=== PATIENT | female | born 1960 ===

== ENCOUNTER 2018-04-02 14:43 | Inpatient (IN) | payer BC ==
[~2018-04-02] VITALS: Ht 167.6 cm; Wt 82.9 kg
[2018-04-02] MEDS ORDERED: ALBU2.5V5 NEB (14:50)
[2018-04-02] MEDS ORDERED: ALBU90OI61 INH (14:50)
[2018-04-02] MEDS ORDERED: ALBU3IS (14:51)
[2018-04-02] MEDS ORDERED: Prinivil10 MG PO (14:51)
[2018-04-02] MEDS ORDERED: BUDE6HFA INH (14:51)
[2018-04-02 15:40] LABS: BASOPHILS PERCENT AUTO 1 % (0-2); EOSINOPHILS PERCENT AUTO 13 % (0-6); Hemoglobin 15.6 g/dL (11.5-16.0); IMMATURE GRAN ABSOLUTE AUTO 0.02 K/mm3 (0.00-0.10); IMMATURE GRAN PERCENT AUTO 0 % (0-1); LYMPHOCYTES ABSOLUTE AUTO 2.59 K/mm3 (0.84-5.20); LYMPHOCYTES PERCENT AUTO 29 % (21-46); MONOCYTES ABSOLUTE AUTO 0.67 K/mm3 (0.16-1.47); MONOCYTES PERCENT AUTO 8 % (4-13); Mean Corpuscular HGB 31.5 pg (26.0-34.0); Mean Corpuscular HGB Conc 34.7 g/dL (31.5-36.5); Mean Corpuscular Volume 91 fL (80-100); Mean Platelet Volume 9.9 fL (9.1-12.4); NEUTROPHILS ABSOLUTE AUTO 4.37 K/mm3 (1.96-9.15); NEUTROPHILS PERCENT AUTO 49 % (41-73); Platelet Count 231 K/mm3 (150-400); RDW Coefficient Variation 12.1 % (11.7-14.2); RDW Standard Deviation 39.9 fL (35.1-46.3); Red Blood Cell Count 4.96 M/mm3 (3.80-5.20); White Blood Cell Count 8.95 K/mm3 (4.00-11.30)
[2018-04-02 16:06] LABS: Alanine Aminotransfer (ALT/SGP 21 U/L (12-78); Albumin, Blood 3.8 g/dL (3.4-5.0); Albumin/Globulin Ratio 1.1 (0.8-1.8); Alk Phos 61 U/L (50-136); Anion Gap 9 mmol/L (6-16); Aspartate Aminotrans (AST/SGOT 12 U/L (12-37); Bilirubin, Total 0.6 mg/dL (0.1-1.0); Blood Urea Nitrogen 13 mg/dL (8-24); Bun/Creatinine Ratio 14.5 (12.0-20.0); CO2, Blood 26 mmol/L (21-32); Calcium, Blood 9.3 mg/dL (8.5-10.1); Chloride, Blood 107 mmol/L (98-108); Globulin, Blood 3.4 g/dL (2.2-4.0); Glomerular Filtration Rate >60 (60-); Glucose, Blood 107 mg/dL (70-99); Potassium, Blood 3.3 mmol/L (3.5-5.5); Sodium, Blood 142 mmol/L (136-145); Total Protein, Blood 7.2 g/dL (6.4-8.2); Troponin I <0.015 ng/mL (0.000-0.040)
[2018-04-02] MEDS ORDERED: Hydrochloroth12.5 MG PO (19:12)
[2018-04-02] MEDS ORDERED: ALL DAY ALLERGY10 M1 PO (19:13)
[2018-04-02] MEDS ORDERED: Flonase 0.05% N16 GM (19:14)
[2018-04-03 04:19] LABS: Anion Gap 10 mmol/L (6-16); Blood Urea Nitrogen 15 mg/dL (8-24); Bun/Creatinine Ratio 18.4 (12.0-20.0); CO2, Blood 24 mmol/L (21-32); Calcium, Blood 9.4 mg/dL (8.5-10.1); Chloride, Blood 107 mmol/L (98-108); Creatinine, Blood 0.82 mg/dL (0.40-1.00); Glomerular Filtration Rate >60 (60-); Glucose, Blood 153 mg/dL (70-99); Potassium, Blood 3.6 mmol/L (3.5-5.5); Sodium, Blood 141 mmol/L (136-145)
--- NOTE | 2018-04-03 06:48 | NUR ---
PCU NOC SHIFT SUMMARY PATIENT ARRIVED TO UNIT FROM ER AND AMULATED FROM WHEELCHAIR TO UNIT BED. PATIENT HAD INCREASE WOB WITH EXCERTION. OXYGEN APPLIED AT 2 LPM AND LATER TITRATED UP TO 4 LPM NC. L/S COARSE T/O. PATIENT DENIES ANY PAIN T/O SHIFT. PATIENT ORIENTED TO UNIT AND ROOM AND CURRENT MEDICATIONS. BREATHING TREATMENTS GIVEN PRN. NO ACUTE DISTRESS NOTED T/O SHIFT AND VSS. WILL CONTINUE TO MONITOR AND GIVE REPORT TO DAYSHIFT RN.
[2018-04-03 10:34] LABS: Adenovirus Not Detected (NOT DETECT); Bordetella pertussis Not Detected (NOT DETECT); Chlamydophila pneumoniae Not Detected (NOT DETECT); Coronavirus 229E Not Detected (NOT DETECT); Coronavirus HKU1 Not Detected (NOT DETECT); Coronavirus NL63 Not Detected (NOT DETECT); Coronavirus OC43 Not Detected (NOT DETECT); Human Metapneumovirus Not Detected (NOT DETECT); Human Rhinovirus/Enterovirus Not Detected (NOT DETECT); Influenza A Not Detected (NOT DETECT); Influenza A/2009-H1 Not Detected (NOT DETECT); Influenza A/H1 Not Detected (NOT DETECT); Influenza A/H3 Not Detected (NOT DETECT); Influenza B Not Detected (NOT DETECT); Mycoplasma pneumoniae Not Detected (NOT DETECT); Parainfluenza Virus 1 Not Detected (NOT DETECT); Parainfluenza Virus 2 Not Detected (NOT DETECT); Parainfluenza Virus 3 Not Detected (NOT DETECT); Parainfluenza Virus 4 Not Detected (NOT DETECT); Respiratory Syncytial Virus Not Detected (NOT DETECT)
--- NOTE | 2018-04-03 12:17 | NUR ---
Assumed Care: Assumed care of pt at approx 0700. VSS. In no apparent sign of distress. P is A&Ox4. C/o some mild back pain - offered tylenol and heating pad - pt states that she will call if she needs any additional interventions other than repositioning. Pt states that she would like to get up for a walk today. Pt requesting probiotic for recent diarrhea. Currently resting in bed, using flutter valve. Denies any further questions, complaints or requests at this time. Will continue to tutu.
--- NOTE | 2018-04-03 19:50 | NUR ---
Shift Summary No acute changes since initial shift assessment. VSS. In no apparent sign of distress. Pt is A&Ox4. Calls appropriately. C/o mild headache today - medicated per orders. Pt ambulated in jimenez today and SpO2 was higher than any other point today when pt returned to bed after walk at 96%. Otherwise pt has been apporx 88-90% Spo2 on 4L O2 NC. Pt denies any other acute events or complaints t/o the shift. Currently resting in bed with call light within reach. Denies any further questions, complaints or requests at this time. Report given to baljeet Chavez.
--- NOTE | 2018-04-04 01:37 | NUR ---
REPORT FROM RAYMOND IN PCU. PT TRANSFERRED FROM PCU IN STABLE CONDITION, A&O, ABLE TO MAKE NEEDS KNOWN. ORIENTED TO UNIT. RT TO BRING CONT BIOX.
--- NOTE | 2018-04-04 02:30 | NUR ---
TRANSFER SUMMARY PATIENT ALERT AND ORIENTED X4 T/O SHIFT. RESP E/U AT REST. PATIENT REMAINED ON 3.5 LPM NC T/O SHIFT WITH CONTINUOUS BIOX IN PLACE; L/S REMAINS COARSE T/O. NO ACUTE CHANGES, VSS, PATIENT SLEPT WELL T/O SHIFT. REPORT GIVEN TO MACHINE REPAIR PERSON. PATIENT LEFT UNIT IN NO ACUTE DISTRESS.
[2018-04-04 05:32] LABS: BASOPHILS ABSOLUTE AUTO 0.02 K/mm3 (0.00-0.23); BASOPHILS PERCENT AUTO 0 % (0-2); EOSINOPHILS PERCENT AUTO 0 % (0-6); Hematocrit 38.3 % (33.0-51.0); Hemoglobin 13.4 g/dL (11.5-16.0); IMMATURE GRAN ABSOLUTE AUTO 0.08 K/mm3 (0.00-0.10); IMMATURE GRAN PERCENT AUTO 1 % (0-1); LYMPHOCYTES ABSOLUTE AUTO 0.99 K/mm3 (0.84-5.20); LYMPHOCYTES PERCENT AUTO 6 % (21-46); MONOCYTES ABSOLUTE AUTO 0.23 K/mm3 (0.16-1.47); MONOCYTES PERCENT AUTO 1 % (4-13); Mean Corpuscular HGB 32.1 pg (26.0-34.0); Mean Corpuscular Volume 92 fL (80-100); Mean Platelet Volume 10.2 fL (9.1-12.4); NEUTROPHILS ABSOLUTE AUTO 15.86 K/mm3 (1.96-9.15); NEUTROPHILS PERCENT AUTO 92 % (41-73); Platelet Count 216 K/mm3 (150-400); RDW Coefficient Variation 11.9 % (11.7-14.2); RDW Standard Deviation 40.1 fL (35.1-46.3); Red Blood Cell Count 4.18 M/mm3 (3.80-5.20); White Blood Cell Count 17.18 K/mm3 (4.00-11.30)
[2018-04-04 06:04] LABS: Alanine Aminotransfer (ALT/SGP 18 U/L (12-78); Albumin, Blood 3.5 g/dL (3.4-5.0); Albumin/Globulin Ratio 1.2 (0.8-1.8); Alk Phos 47 U/L (50-136); Anion Gap 9 mmol/L (6-16); Aspartate Aminotrans (AST/SGOT 9 U/L (12-37); Bilirubin, Total 0.4 mg/dL (0.1-1.0); Blood Urea Nitrogen 28 mg/dL (8-24); CO2, Blood 24 mmol/L (21-32); Calcium, Blood 9.3 mg/dL (8.5-10.1); Chloride, Blood 108 mmol/L (98-108); Creatinine, Blood 0.97 mg/dL (0.40-1.00); Globulin, Blood 2.9 g/dL (2.2-4.0); Glomerular Filtration Rate >60 (60-); Glucose, Blood 146 mg/dL (70-99); Potassium, Blood 3.9 mmol/L (3.5-5.5); Sodium, Blood 141 mmol/L (136-145); Total Protein, Blood 6.4 g/dL (6.4-8.2)
--- NOTE | 2018-04-04 06:32 | NUR ---
SHIFT SUMMARY PT TRANSFERRED FROM PCU 15 LAST NIGHT, MED STATUS NO TELE, STABLE. PT REPORTS HER SOB AND WHEEZING HAS IMPROVED. SHE IS A&O, ABLE TO MAKE NEEDS KNOWN. LUNGS WERE COARSE WITH EXPIRATORY WHEEZING ON THE LEFT. SHE IS MAINTAINING IN THE LOW 90S ON 3.5L VIA NC, COULD POTENTIALLY BE WEANED DOWN TODAY. RT ON THE CASE. WILL CTM UNTIL PASS TO NEXT SHIFT.
--- NOTE | 2018-04-04 18:03 | NUR ---
SHIFT SUMMARY PT DENIES SOB AT REST AND WITH EXERTION. IV ANTIBIOTICS STARTED THIS AFTERNOON. PT IS INDEPEDENT WHEN OOB. O2 DECREASED FROM 3L TO 2L. VSS. WILL MONITOR UNTIL REPORT TO ONCOMING RN.
--- NOTE | 2018-04-04 19:15 | NUR ---
recvd bedside report from previous shift rn munira, pt sitting up in bed, a/0 x 4, pleasant/cooperative, 2l nc, bed in lowest position, bed rails up, call light within reach.
--- NOTE | 2018-04-05 04:46 | NUR ---
SHIFT SUMMARY: VSS, NO ACUTE CHANGE, PT REMAINED A/0 X 4, PLEASANT/COOPERATIVE. PT REQUESTED ANALGESIA PER MAR FOR REPORTED HEADACHE. ON ASSESSMENT PT REPORTS IMPROVEMENT OF HEADACHE. PT TOLERATED PO INTAKE WELL WITH NO N/V, URINE OUTPUT >600 ML. NO BM, PROVIDED BOWEL CARE. LUNGS: CLEAR IN L LOBES, EXPIRATORY WHEEZE IN R MIDDLE AND LOWER LOBES. PT REPORTS NO SOB. PT APPEARS TO BE SLEEPING PERIODICALLY T/O SHIFT.
[2018-04-05 04:50] LABS: BASOPHILS ABSOLUTE AUTO 0.01 K/mm3 (0.00-0.23); BASOPHILS PERCENT AUTO 0 % (0-2); EOSINOPHILS PERCENT AUTO 0 % (0-6); Hematocrit 38.2 % (33.0-51.0); Hemoglobin 13.3 g/dL (11.5-16.0); IMMATURE GRAN ABSOLUTE AUTO 0.06 K/mm3 (0.00-0.10); IMMATURE GRAN PERCENT AUTO 0 % (0-1); LYMPHOCYTES ABSOLUTE AUTO 0.73 K/mm3 (0.84-5.20); LYMPHOCYTES PERCENT AUTO 5 % (21-46); MONOCYTES ABSOLUTE AUTO 0.17 K/mm3 (0.16-1.47); MONOCYTES PERCENT AUTO 1 % (4-13); Mean Corpuscular HGB 32.3 pg (26.0-34.0); Mean Corpuscular HGB Conc 34.8 g/dL (31.5-36.5); Mean Corpuscular Volume 93 fL (80-100); Mean Platelet Volume 10.1 fL (9.1-12.4); NEUTROPHILS ABSOLUTE AUTO 13.09 K/mm3 (1.96-9.15); NEUTROPHILS PERCENT AUTO 93 % (41-73); Platelet Count 214 K/mm3 (150-400); RDW Coefficient Variation 11.9 % (11.7-14.2); RDW Standard Deviation 40.3 fL (35.1-46.3); Red Blood Cell Count 4.12 M/mm3 (3.80-5.20); White Blood Cell Count 14.06 K/mm3 (4.00-11.30)
[2018-04-05 05:13] LABS: Alanine Aminotransfer (ALT/SGP 18 U/L (12-78); Albumin, Blood 3.4 g/dL (3.4-5.0); Albumin/Globulin Ratio 1.2 (0.8-1.8); Alk Phos 45 U/L (50-136); Anion Gap 8 mmol/L (6-16); Aspartate Aminotrans (AST/SGOT 10 U/L (12-37); Bilirubin, Total 0.5 mg/dL (0.1-1.0); Blood Urea Nitrogen 26 mg/dL (8-24); Bun/Creatinine Ratio 28.6 (12.0-20.0); CO2, Blood 27 mmol/L (21-32); Calcium, Blood 9.3 mg/dL (8.5-10.1); Chloride, Blood 107 mmol/L (98-108); Creatinine, Blood 0.91 mg/dL (0.40-1.00); Globulin, Blood 2.9 g/dL (2.2-4.0); Glomerular Filtration Rate >60 (60-); Glucose, Blood 145 mg/dL (70-99); Sodium, Blood 142 mmol/L (136-145); Total Protein, Blood 6.3 g/dL (6.4-8.2)
--- NOTE | 2018-04-05 17:41 | NUR ---
SHIFT SUMMARY O2 HAS BEEN TITRATED TO 1L. PT DENIES SOB AT REST AND WITH EXERTION. PT REMAINS INDEPEDENT IN THE ROOM. VSS. WILL MONITOR UNTIL REPORT TO ONCOMING RN.
[2018-04-06 04:51] LABS: BASOPHILS ABSOLUTE AUTO 0.01 K/mm3 (0.00-0.23); BASOPHILS PERCENT AUTO 0 % (0-2); EOSINOPHILS ABSOLUTE AUTO 0.01 K/mm3 (0.00-0.68); EOSINOPHILS PERCENT AUTO 0 % (0-6); Hemoglobin 13.3 g/dL (11.5-16.0); IMMATURE GRAN ABSOLUTE AUTO 0.05 K/mm3 (0.00-0.10); IMMATURE GRAN PERCENT AUTO 1 % (0-1); LYMPHOCYTES ABSOLUTE AUTO 0.84 K/mm3 (0.84-5.20); LYMPHOCYTES PERCENT AUTO 9 % (21-46); MONOCYTES ABSOLUTE AUTO 0.32 K/mm3 (0.16-1.47); MONOCYTES PERCENT AUTO 3 % (4-13); Mean Corpuscular HGB 31.3 pg (26.0-34.0); Mean Corpuscular HGB Conc 34.1 g/dL (31.5-36.5); Mean Corpuscular Volume 92 fL (80-100); Mean Platelet Volume 10.2 fL (9.1-12.4); NEUTROPHILS PERCENT AUTO 88 % (41-73); Platelet Count 211 K/mm3 (150-400); RDW Coefficient Variation 11.9 % (11.7-14.2); RDW Standard Deviation 39.7 fL (35.1-46.3); Red Blood Cell Count 4.25 M/mm3 (3.80-5.20); White Blood Cell Count 9.93 K/mm3 (4.00-11.30)
--- NOTE | 2018-04-06 05:00 | NUR ---
PT REQUESTED HELP WITH STRAIGHT CATHING. 14FR STRAIGHT CATH PLACED USING STERILE TECHNIQUE. 600ML CLEAR CONCENTRATED YELLOW URINE DRAINED FROM BLADDER. [facility] PERFORMED AND DIAPER REPLACED. DENIES FURTHER NEEDS AT THIS TIME. SAFETY MEASURES IN PLACE. WILL CONTINUE TO MONITOR.
[2018-04-06 05:24] LABS: Anion Gap 6 mmol/L (6-16); Blood Urea Nitrogen 26 mg/dL (8-24); Bun/Creatinine Ratio 31.4 (12.0-20.0); CO2, Blood 26 mmol/L (21-32); Calcium, Blood 9.2 mg/dL (8.5-10.1); Chloride, Blood 110 mmol/L (98-108); Creatinine, Blood 0.83 mg/dL (0.40-1.00); Glomerular Filtration Rate >60 (60-); Glucose, Blood 117 mg/dL (70-99); Potassium, Blood 4.5 mmol/L (3.5-5.5); Sodium, Blood 142 mmol/L (136-145)
--- NOTE | 2018-04-06 05:37 | NUR ---
LYING IN SEMI FOWLERS WITH EYES CLOSED. DENIES FUTHER NEEDS AT THIS TIME. SAFETY MEASURES IN PLACE. WILL GIVE HAND OFF TO ONCOMING SHIFT USING SBAR.
[2018-04-06] MEDS ORDERED: DEEP SEA44 ML (10:46)
[2018-04-06] MEDS ORDERED: ALBU2.5V5 NEB (10:46)
[2018-04-06] MEDS ORDERED: PANT20 PO (10:46)
[2018-04-06] MEDS ORDERED: GUAI600T33 PO (10:46)
[2018-04-06] MEDS ORDERED: AZIT250 PO (10:47)
[2018-04-06] MEDS ORDERED: PRED20 (10:47)
--- NOTE | 2018-04-06 11:00 | NUR ---
DISCHARGE SUMMARY PT A&OX4, VSS, LEFT WITH ALL PERSONAL BELONGINGS INCLUDING DISCHARGE PACKET. DISCHARGE INSTRUCTIONS PROVIDED. PT REP UNDERSTANDING THOSE INSTRUCTIONS INCLUDING FU WITH PCP 1 WK AND TO CALL IF DO NOT RECEIVE CB TODAY WITH APPT TIME, MEDS AT [facility], CONTINUE TCDB & FLUTTER VALVE USE. IV DC'D.
--- NOTE | 2018-04-06 12:38 | NUR ---
FOLLOW UP NOTIFIED PATIENT OF APPT WITH DR MORGAN 04/07 AT 11:15
== END 2018-04-06 11:00 | disposition home or self-care (01) | DRG 189 ==
LOC: ER 14:43 → PCU 18:11 → ER 19:03 → PCU 19:55 → SURS 04-04 01:12
PROVIDERS: Internal Medicine; Nurse Practitioner Acute Care; Physician Assistant; ADMIT Internal Medicine
DX: J96.01 Acute respiratory failure with hypoxia (principal); J44.0 Chronic obstructive pulmonary disease with (acute) lower respiratory infection; J44.1 Chronic obstructive pulmonary disease with (acute) exacerbation; J20.9 Acute bronchitis, unspecified; I10 Essential (primary) hypertension; E87.6 Hypokalemia; T38.0X5A Adverse effect of glucocorticoids and synthetic analogues, initial encounter; K76.89 Other specified diseases of liver; D18.09 Hemangioma of other sites; Z87.891 Personal history of nicotine dependence; Z88.8 Allergy status to other drugs, medicaments and biological substances
CPT/HCPCS: 36415; 71046; 71260; 76705; 80048; 80053; 84484; 85025; 85379; 87486; 87581; 87633; 87798; 93005; 93010; 94640; 94644; 94760; 94762; 96365; 96375; 99285-25; J0456; J1650; J2920; J2930; J3475; J7050; Q9967

== ENCOUNTER 2022-05-04 23:47 | Inpatient (IN) | payer OTHER ==
[~2022-05-04] VITALS: Ht 170.2 cm; Wt 75.9 kg
[~2022-05-04 23:47] MED LIST: ALBU2.5V5 NEB; ALBU3IS; ALBU90OI61 INH; ALL DAY ALLERGY10 M1 PO; AZIT250 PO; BUDE6HFA INH; DEEP SEA44 ML; Flonase 0.05% N16 GM; GUAI600T33 PO; Hydrochloroth12.5 MG PO; PANT20 PO; PRED20; Prinivil10 MG PO
[2022-05-05] MEDS ORDERED: TELMISARTAN20 MG PO (00:06)
[2022-05-05] MEDS ORDERED: BUDESONIDE-FO10.2 G2 (00:06)
[2022-05-05] MEDS ORDERED: OMEP20ER (00:06)
[2022-05-05 00:17] LABS: BASOPHILS ABSOLUTE AUTO 0.11 K/mm3 (0.00-0.23); BASOPHILS PERCENT AUTO 1 % (0-2); EOSINOPHILS PERCENT AUTO 11 % (0-6); Hematocrit 43.4 % (33.0-51.0); IMMATURE GRAN ABSOLUTE AUTO 0.02 K/mm3 (0.00-0.10); IMMATURE GRAN PERCENT AUTO 0 % (0-1); LYMPHOCYTES PERCENT AUTO 31 % (21-46); MONOCYTES ABSOLUTE AUTO 0.46 K/mm3 (0.16-1.47); MONOCYTES PERCENT AUTO 5 % (4-13); Mean Corpuscular HGB 31.1 pg (26.0-34.0); Mean Corpuscular HGB Conc 34.6 g/dL (31.5-36.5); Mean Corpuscular Volume 90 fL (80-100); Mean Platelet Volume 9.4 fL (9.1-12.4); NEUTROPHILS ABSOLUTE AUTO 4.69 K/mm3 (1.96-9.15); NEUTROPHILS PERCENT AUTO 52 % (41-73); Platelet Count 265 K/mm3 (150-400); RDW Coefficient Variation 12.3 % (11.7-14.2); RDW Standard Deviation 40.1 fL (35.1-46.3); Red Blood Cell Count 4.82 M/mm3 (3.80-5.20); White Blood Cell Count 9.08 K/mm3 (4.00-11.30)
[2022-05-05 00:47] LABS: Albumin/Globulin Ratio 1.2 (0.8-1.8); Bilirubin, Total 0.4 mg/dL (0.1-1.0); Bun/Creatinine Ratio 14.8 (12.0-20.0); Calcium, Blood 9.1 mg/dL (8.5-10.1); Creatinine, Blood 0.81 mg/dL (0.40-1.00); Globulin, Blood 3.4 g/dL (2.2-4.0); Potassium, Blood 3.6 mmol/L (3.5-5.5); Total Protein, Blood 7.4 g/dL (6.4-8.2)
[2022-05-05 01:43] LABS: Influenza A, PCR NEGATIVE (NEGATIVE); Influenza B, PCR NEGATIVE (NEGATIVE); Resp Syncytial Virus, PCR NEGATIVE (NEGATIVE); SARS-Cov-2 (COVID-19) PCR, MMC NEGATIVE (NEGATIVE)
[2022-05-05 04:22] LABS: BASOPHILS ABSOLUTE AUTO 0.11 K/mm3 (0.00-0.23); BASOPHILS PERCENT AUTO 1 % (0-2); EOSINOPHILS ABSOLUTE AUTO 0.54 K/mm3 (0.00-0.68); EOSINOPHILS PERCENT AUTO 5 % (0-6); Hematocrit 43.6 % (33.0-51.0); Hemoglobin 14.9 g/dL (11.5-16.0); IMMATURE GRAN ABSOLUTE AUTO 0.05 K/mm3 (0.00-0.10); IMMATURE GRAN PERCENT AUTO 0 % (0-1); LYMPHOCYTES ABSOLUTE AUTO 1.82 K/mm3 (0.84-5.20); LYMPHOCYTES PERCENT AUTO 16 % (21-46); MONOCYTES ABSOLUTE AUTO 0.45 K/mm3 (0.16-1.47); MONOCYTES PERCENT AUTO 4 % (4-13); Mean Corpuscular HGB 31.3 pg (26.0-34.0); Mean Corpuscular HGB Conc 34.2 g/dL (31.5-36.5); Mean Corpuscular Volume 92 fL (80-100); Mean Platelet Volume 9.6 fL (9.1-12.4); NEUTROPHILS ABSOLUTE AUTO 8.19 K/mm3 (1.96-9.15); NEUTROPHILS PERCENT AUTO 74 % (41-73); Platelet Count 265 K/mm3 (150-400); RDW Coefficient Variation 12.5 % (11.7-14.2); RDW Standard Deviation 41.1 fL (35.1-46.3); Red Blood Cell Count 4.76 M/mm3 (3.80-5.20); White Blood Cell Count 11.16 K/mm3 (4.00-11.30)
[2022-05-05 04:56] LABS: Albumin, Blood 3.8 g/dL (3.4-5.0); Albumin/Globulin Ratio 1.1 (0.8-1.8); Bilirubin, Total 0.4 mg/dL (0.1-1.0); Bun/Creatinine Ratio 16.9 (12.0-20.0); Calcium, Blood 9.1 mg/dL (8.5-10.1); Creatinine, Blood 0.77 mg/dL (0.40-1.00); Globulin, Blood 3.4 g/dL (2.2-4.0); Potassium, Blood 3.5 mmol/L (3.5-5.5); Total Protein, Blood 7.2 g/dL (6.4-8.2)
--- NOTE | 2022-05-05 06:45 | NUR ---
SHIFT SUMMARY PT ARRIVED TO PCU AT 0345, PT TRANSFERRED SELF TO HOSPITAL BED. PT A&0 X4, VSS. PT ON 4 L VIA NC, SPO2 94 - 95%. WOB MIDLY INCREASED AND RR 20. PT LUNGS SOUNDS ARE COARSE AND WHEEZING. PT STATES FEELS A LITTLE BETTER BUT STILL EXPERIENCING SOB W/MINIMAL MOVEMENT AND DURING CONVERSATION. PT DENIES CP OR PRESSURE, DENIES LIGHTHEADNESS OR DIZZINESS. PT ASSESSMENT COMPLETED, ORIENTED TO ROOM AND MADE COMFORTABLE. PT NOW RESTING WELL IN ROOM. WILL UPDATE ONCOMING RN. CALL LIGHT IN REACH.
--- NOTE | 2022-05-05 17:12 | NUR ---
SHIFT SUMMARY; ASSUMED CARE AT 0700. A/A/OX4, 2L VIA NC T/O SHIFT. VSS, SATS 92%. L/S COARSE/WHEEZY T/O. REPOSITIONS SELF ON BED WITHOUT DIFFICULTY. INDEPENDANT IN ROOM. NO ACUTE CHANGES DURING SHIFT. REPORT GIVEN TO MEDICAL FLOOR RN FOR IN HOUSE TRANSFER.
--- NOTE | 2022-05-05 18:18 | NUR ---
NOTES: PATIENT TRANSFERRED FROM PCU ARRIVE TO ROOM AT AROUND 1700 VIA WHEELCHAIR. PATIENT TRASNFERRED TO BED c SBA. NOTED WEARS O2 2L VIA NC. LUNGS COARSE/ WHEEZY T/O TO AUSCULTATION. IV TO R AC SALINE LOCKED. PATIENT A&OX4. CALM, PLEASANT, AND COOPERATIVE c CARE. USES CALL LIGHT APPROPRIATELY AND ABLE TO MAKE NEEDS KNOWN. CALL LIGHT IN REACH.
--- NOTE | 2022-05-06 05:22 | NUR ---
SUMMARY: PATIENT AOX4. VSS. CURRENTLY ON 2L NC. LUNG SOUNDS AR COARSE AND WHEEZY. PATIENT IS GETTING BREATHING TREATMENTS AND IV STEROIDS Q6HRS. PATIENT RESTED WELL THROUGHOUT THE NIGHT. NO ACUTE EVENTS.
--- NOTE | 2022-05-06 18:11 | NUR ---
SHIFT SUMMARY NO ACUTE CHANGES THIS SHIFT. PT STATES THAT SHE IS "IMPROVING" AND IS NOW ON RA. SHE IS SATING >90. NO C/O OF P/N/V/CP, SHE DID C/O OF SOME SOB AFTER GETTING OUT OF THE SHOWER THIS AM. SHE IS COUGHING BUT IT IS NOT PRODUCTIVE. SHE HAD HER SON VISIT TODAY ALSO. WILL REPORT TO ONCOMING NURSE.
--- NOTE | 2022-05-07 04:30 | NUR ---
SHIFT UNREMARKABLE. ON EVENING VITALS, PATIENT WAS TACHYCARDIC. REVIEWED CHART WHICH INDICATED PT HAS BEEN RUNNING MILDLY TACHYCARDIC THROUGHOUT THE DAY AND REMAINS ASYMPTOMATIC. PT SATTING WELL ON ROOM AIR. DENIES ANY PAIN OR DYSPNEA OF ANY KIND. CALL LIGHT LEFT WITHIN REACH.
[2022-05-07] MEDS ORDERED: PRED20 PO (11:38)
--- NOTE | 2022-05-07 13:33 | NUR ---
LATE ENTRY/DC HOME WRITTEN & VERBAL DC INSTRUCTIONS GIVEN TO PT WITH GOOD UNDERSTANDING VERBALIZED. ALL CONCERNS & QUESTIONS ADDRESSED. NEW SCRIPTS WERE FAXED TO PT'S STATED PREFERRED PHARM. PIV DC'D WITH CATH TIP INTACT, NO REDNESS OR SWELLING NOTED. PT TO SON'S PRIVATE VEHICLE VIA W/C WITH ALL PERSONAL BELONGINGS.
== END 2022-05-07 12:55 | disposition home or self-care (01) | DRG 189 ==
LOC: ER 23:47 → MEDS 05-05 03:18 → PCU 05-05 03:18 → MEDS 05-05 17:02
PROVIDERS: Emergency Medicine; ADMIT Internal Medicine
DX: J96.01 Acute respiratory failure with hypoxia (principal); J44.1 Chronic obstructive pulmonary disease with (acute) exacerbation; J44.0 Chronic obstructive pulmonary disease with (acute) lower respiratory infection; K21.9 Gastro-esophageal reflux disease without esophagitis; Z20.822 Contact with and (suspected) exposure to COVID-19; I10 Essential (primary) hypertension; Z90.710 Acquired absence of both cervix and uterus; Z98.890 Other specified postprocedural states; Z87.891 Personal history of nicotine dependence; Z88.1 Allergy status to other antibiotic agents; Z79.51 Long term (current) use of inhaled steroids; Z79.899 Other long term (current) drug therapy
CPT/HCPCS: 0241U; 36415; 71045; 80053; 83605; 85025; 93005; 93010; 94640; 94644; 94664; 94760; 96374; 99285-25; A9270; J1650; J2930